=== PATIENT | female | born 1945 | race Caucasian/White ===

== ENCOUNTER 2020-09-10 07:09 | Outpatient (CLI) | payer MEDICARE, OTHER ==
[~2020-09-10] VITALS: Ht 175.3 cm; Wt 66.2 kg
[2020-09-10] MEDS ORDERED: BENICAR40 MG PO (07:32)
[2020-09-10] MEDS ORDERED: ASPIRIN EC81 MG PO (07:32)
[2020-09-10] MEDS ORDERED: CYMBALTA60 MG PO (07:32)
[2020-09-10] MEDS ORDERED: TOPROL XL50 MG PO (07:33)
[2020-09-10] MEDS ORDERED: CRESTOR10 MG PO (07:33)
[2020-09-10] MEDS ORDERED: [UNRECOGNIZED DRUG - CODE] PO (07:35)
[2020-09-10] MEDS ORDERED: TRIAMTERENE-HC1 EACH PO (18:05)
[2020-09-11] MEDS ORDERED: LEVOFLOXACIN500 MG PO (08:51)
[2020-09-11] MEDS ORDERED: ACETAMINOPHEN-1 EAC1 PO (08:54)
== END 2020-09-11 09:54 | disposition home or self-care (01) ==
LOC: CATH 07:09 → PROG CARE 12:20 → CDU 12:20 → PROG CARE 12:20 → CDU 12:21 → PROG CARE 12:21 → CDU 12:49 → PROG CARE 12:49 → CATH 09-11 09:54
PROC: 0JH609Z Insertion of Cardiac Resynchronization Defibrillator Pulse Generator into Chest Subcutaneous Tissue and Fascia, Open Approach (ICD-10-PCS; principal; 2020-09-10)
PROC: 02H63KZ Insertion of Defibrillator Lead into Right Atrium, Percutaneous Approach (ICD-10-PCS; 2020-09-10)
PROC: 02HK3KZ Insertion of Defibrillator Lead into Right Ventricle, Percutaneous Approach (ICD-10-PCS; 2020-09-10)
PROC: 02H43KZ Insertion of Defibrillator Lead into Coronary Vein, Percutaneous Approach (ICD-10-PCS; 2020-09-10)
PROC: 4B02XTZ Measurement of Cardiac Defibrillator, External Approach (ICD-10-PCS; 2020-09-10)
DX: I42.0 Dilated cardiomyopathy (principal); I42.8 Other cardiomyopathies; I11.0 Hypertensive heart disease with heart failure; I50.22 Chronic systolic (congestive) heart failure; I44.7 Left bundle-branch block, unspecified; E78.00 Pure hypercholesterolemia, unspecified; Z79.82 Long term (current) use of aspirin; Z87.891 Personal history of nicotine dependence; Z23 Encounter for immunization; Z82.49 Family history of ischemic heart disease and other diseases of the circulatory system; Z79.899 Other long term (current) drug therapy
CPT/HCPCS: 33225; 33249; 71045; 90686; 93005; 93641; 99152; 99153; C1769; C1777; C1882; C1898; C1900; G0008; J1644; J2250; J2270; J3010; J3370; J7040; J7050; J7070; Q9965

== ENCOUNTER 2022-02-03 18:04 | Observation (INO) | payer MEDICARE, OTHER ==
[~2022-02-03] VITALS: Ht 157.5 cm; Wt 68.0 kg
[~2022-02-03 18:04] MED LIST: ACETAMINOPHEN-1 EAC1 PO; ASPIRIN EC81 MG PO; BENICAR40 MG PO; CRESTOR10 MG PO; CYMBALTA60 MG PO; LEVOFLOXACIN500 MG PO; TOPROL XL50 MG PO; TRIAMTERENE-HC1 EACH PO; [UNRECOGNIZED DRUG - CODE] PO
[2022-02-03 18:38] LABS: HEMOGLOBIN 13.5 gm/dl (12.3-15.3); RED BLOOD COUNT 4.77 M/UL (4.00-5.10); WHITE BLOOD COUNT 9.5 K/UL (4.5-11.0)
[2022-02-03 19:35] LABS: BUN/CREATININE RATIO 25 (0-10)
[2022-02-04] MEDS ORDERED: PROTONIX40 MG PO (12:09)
[2022-02-04] MEDS ORDERED: AMLODIPINE BESYL5 MG PO (12:10)
[2022-02-04] MEDS ORDERED: ENTRESTO 24 MG1 EACH PO (12:10)
[2022-02-04] MEDS ORDERED: HYDROCHLOROTHIA25 MG PO (12:10)
[2022-02-04] MEDS ORDERED: ADVIL PM CAPLE1 EACH PO (12:13)
== END 2022-02-04 16:05 | disposition home or self-care (01) ==
LOC: ER1 18:04 → CDU 21:31 → MED SURG 4 21:31
PROVIDERS: ADMIT Internal Medicine
DX: R55 Syncope and collapse (principal); I42.8 Other cardiomyopathies; I44.7 Left bundle-branch block, unspecified; E78.5 Hyperlipidemia, unspecified; M51.36 Other intervertebral disc degeneration, lumbar region; E86.0 Dehydration; I11.0 Hypertensive heart disease with heart failure; I50.9 Heart failure, unspecified; S01.01XA Laceration without foreign body of scalp, initial encounter; W19.XXXA Unspecified fall, initial encounter; Z79.82 Long term (current) use of aspirin; Z79.899 Other long term (current) drug therapy; Z95.810 Presence of automatic (implantable) cardiac defibrillator; Z96.82 Presence of neurostimulator
CPT/HCPCS: 12001; 70450; 71045; 72125; 72128; 72131; 80053; 82550; 82553; 84484; 85025; 90471; 90715; 93005; 99285; G0378; J7030

== ENCOUNTER 2022-02-09 11:13 | Emergency (ER) | payer MEDICARE, OTHER ==
[~2022-02-09 11:13] MED LIST changes: +ADVIL PM CAPLE1 EACH PO; +AMLODIPINE BESYL5 MG PO; +ENTRESTO 24 MG1 EACH PO; +HYDROCHLOROTHIA25 MG PO; +PROTONIX40 MG PO
[2022-02-09] MEDS ORDERED: HYDROCODON-ACE1 EAC4 PO (12:29)
== END 2022-02-09 12:28 | disposition home or self-care (01) ==
LOC: ER1 11:13
DX: S30.0XXA Contusion of lower back and pelvis, initial encounter (principal); S01.01XD Laceration without foreign body of scalp, subsequent encounter; W19.XXXA Unspecified fall, initial encounter
CPT/HCPCS: 99283